=== PATIENT | male | born 1965 | race Caucasian/White ===

== ENCOUNTER 2021-08-02 11:36 | Emergency (ER) | payer BC ==
[~2021-08-02 11:36] MED LIST: LIPITOR TAB 2020 MG PO; PRINIVIL20 MG PO; SYNTHROID88 MCG PO
== END 2021-08-02 14:15 | disposition home or self-care (01) ==
LOC: ER1 11:36
DX: U07.1 COVID-19 (principal); Z23 Encounter for immunization; E78.5 Hyperlipidemia, unspecified; I10 Essential (primary) hypertension; F17.220 Nicotine dependence, chewing tobacco, uncomplicated; Z90.89 Acquired absence of other organs; Z79.1 Long term (current) use of non-steroidal anti-inflammatories (NSAID)
CPT/HCPCS: 99283; M0243

== ENCOUNTER 2021-09-06 13:16 | Emergency (ER) | payer BC ==
[2021-09-06 14:40] LABS: HEMOGLOBIN 15.6 gm/dl (14.0-17.5); RED BLOOD COUNT 4.54 M/UL (4.20-5.50); WHITE BLOOD COUNT 6.8 K/UL (4.5-11.0)
[2021-09-06 15:01] LABS: BUN/CREATININE RATIO 15 (0-10)
[2021-09-06] MEDS ORDERED: IBUPROFEN600 MG PO (16:57)
== END 2021-09-06 17:15 | disposition home or self-care (01) ==
LOC: ER1 13:16
PROVIDERS: Emergency Medicine
DX: N13.2 Hydronephrosis with renal and ureteral calculous obstruction (principal); I10 Essential (primary) hypertension; E78.5 Hyperlipidemia, unspecified; Z90.89 Acquired absence of other organs
CPT/HCPCS: 80053; 81001; 85025; 96374; 96375; 99284; J2270; J2405